=== PATIENT | female | born 1950 | race Caucasian/White ===

== ENCOUNTER 2016-12-20 16:18 | Emergency (ER) | payer OTHER ==
[2016-12-20] MEDS ORDERED: Ondansetron INJ* 2 MG/ML VIAL IV ONE (16:43)
[2016-12-20] MEDS ORDERED: NS 0.9% 1000 ML* 1,000 ML BOLUS ONE (16:43)
--- NOTE | 2016-12-20 17:05 | UC ---
Abdominal Pain Female HPI - HPI Summary HPI Summary: 66 yo female with onset on n/v/d. onset about midnight. no f/c crampy periumbilical pain unable to tolerate anything PO at least 15 epsiodes of vomiting and 15 episode of diarrhea (large volume and watery) took antibitotics for dental infection a few weeks ago now with carpal spasm - History of Current Complaint Chief Complaint: UCGeneralIllness Stated Complaint: VOMITING, THUMB C/O Time Seen by Provider: 12/20/16 16:34 Hx Obtained From: Patient Onset/Duration: Sudden Onset, Lasting Hours Timing: Constant Severity Initially: Moderate Severity Currently: Moderate Pain Intensity: 4 Pain Scale Used: 0-10 Numeric Location: Other - periumbilical Character: Cramping Aggravating Factor(s): Food Alleviating Factor(s): Nothing Associated Signs and Symptoms: Positive: Nausea, Vomiting, Diarrhea Allergies/Adverse Reactions: Allergies Allergy/AdvReac Type Severity Reaction Status Date / Time No Known Allergies Allergy Verified 12/20/16 16:28 Home Medications: Home Medications Ibuprofen [Ibuprofen 200 MG] 200 mg PO Q6H PRN 12/20/16 [History Confirmed 12/20] Lisinopril [Zestril 5 MG-] 5 mg PO DAILY 12/20/16 [History Confirmed 12/20/16] Simvastatin [Zocor 5 MG-] 5 mg PO DAILY 12/20/16 [History Confirmed 12/20/16] PMH/Surg Hx/FS Hx/Imm Hx Cardiovascular History Of: Reports: Hypertension Respiratory History Of: Reports: Asthma, Bronchitis - Surgical History Surgical History: None Surgery Procedure, Year, and Place: Tooth pulled 3 weeks ago; had infection after this - Family History Known Family History: Positive: Hypertension - Social History Alcohol Use: Occasionally Substance Use Type: None Smoking Status (MU): Former Smoker When Did the Patient Quit Smoking/Using Tobacco: 35 years ago - Immunization History Most Recent Influenza Vaccination: none Review of Systems Constitutional: Negative Skin: Negative Eyes: Negative ENT: Negative Respiratory: Negative Cardiovascular: Negative Gastrointestinal: Abdominal Pain, Vomiting, Diarrhea Genitourinary: Negative Motor: Negative Neurovascular: Negative Musculoskeletal: Negative Neurological: Negative Psychological: Negative All Other Systems Reviewed And Are Negative: Yes Physical Exam Triage Information Reviewed: Yes Appearance: Well-Appearing, No Pain Distress, Well-Nourished Vital Signs: Initial Vital Signs Temp 99.9 F 12/20/16 16:30 Pulse 103 12/20/16 16:30 Resp 16 12/20/16 16:30 BP 163/97 12/20/16 16:30 Pulse Ox 97 12/20/16 16:30 Vital Signs Reviewed: Yes Eyes: Positive: Conjunctiva Clear ENT: Positive: Hearing grossly normal. Negative: Nasal congestion, Nasal drainage, Trismus, Muffled/hoarse voice Neck: Positive: Supple, Nontender Respiratory: Positive: Lungs clear, Normal breath sounds, No respiratory distress Cardiovascular: Positive: RRR, No Murmur, Pulses Normal Abdomen Description: Positive: Nontender, Soft. Negative: CVA Tenderness (R), CVA Tenderness (L), Hernia @, Hepatomegaly, Other: Bowel Sounds: Positive: Present, Hyperactive Musculoskeletal: Positive: ROM Intact, No Edema Neurological: Positive: Alert, Other: - carpalspasm Psychological: Positive: Normal Response To Family, Age Appropriate Behavior Skin Exam: Normal Re-Evaluation - Re-Evaluation First Eval Re-Evaluation Time: 17:30 Change: Improved - markedly improved, no carpospasm/no nausea/abd pain decrease/ abd non tender Abd Pain Female Course/Dx - Differential Dx/Diagnosis Provider Diagnoses: acute gastroenteritis Discharge - Discharge Plan Condition: Stable Disposition: HOME Patient Education Materials: Gastroenteritis (ED) Referrals: Anne Beach NP [Primary Care Provider] - 1 Day Additional Instructions: bowel rest for 2-4 hours then try clear liquids (pedialyte is great) small amts every 15 minutes to er for worsening symptoms zofran every 6 hours if needed for nausea recheck tomorrow bring in stool for studies
[2016-12-20] MEDS ORDERED: Ondansetron ODT TAB* 4 MG PO ONE (17:35)
[2016-12-20 17:55] VITALS: BP 157/86
== END 2016-12-20 17:55 | disposition home or self-care (01) ==
LOC: UCEAST 16:18
DX: K52.9 Noninfective gastroenteritis and colitis, unspecified (principal); I10 Essential (primary) hypertension; J45.909 Unspecified asthma, uncomplicated; Z87.891 Personal history of nicotine dependence
CPT/HCPCS: 96360; 96361; 96374; 99212; G0463; J2405